=== PATIENT | female | born 1950 | race Caucasian/White ===

== ENCOUNTER → 2017-08-06 09:13 | Outpatient (CLI) | payer MEDICARE, OTHER, SELFPAY | PROVIDERS: Family Provider Family Medicine; PCP Family Medicine; Visit Provider Nurse Practitioner Acute Care | DX: G47.33 Obstructive sleep apnea (adult) (pediatric) (principal) | CPT/HCPCS: 98960; G0463 ==

== ENCOUNTER → 2017-08-20 23:12 | Outpatient (CLI) | payer MEDICARE, OTHER, SELFPAY | PROVIDERS: Family Provider Family Medicine; PCP Family Medicine; Visit Provider Nurse Practitioner Acute Care | DX: G47.33 Obstructive sleep apnea (adult) (pediatric) (principal) | CPT/HCPCS: 95811 ==

== ENCOUNTER → 2018-03-29 08:44 | Outpatient (CLI) | payer MEDICARE, OTHER, SELFPAY ==
--- NOTE | 2018-03-29 08:52 | ECHOD_ITS ---
Reason For Study: Bicuspid AV Procedure This was a 2D Doppler, Color Flow transthoracic echocardiogram. Exam performed in department. Left Ventricle Normal size and thickness. The estimated ejection fraction is 45 %. Stage 1 diastolic dysfunction. There are regional wall motion abnormalities as specified. Mid-Anterior : Mildly hypokinetic. Mid- Posterior: Mildly hypokinetic. Anterior [place] : Akinetic. Inferior [place] : Akinetic. Lateral [place] : Severely Hypokinetic. Right Ventricle Normal size and thickness. Normal systolic function. Atria The left atrium is mildly enlarged. Normal right atrium. Normal atrial septum. Mitral Valve The mitral valve is structurally normal. No prolapse or stenosis seen. Trivial mitral valve insufficiency. Tricuspid Valve Normal tricuspid valve. Trivial tricuspid valve insufficiency. Right ventricular systolic pressure estimated to be 30 mmHg. Aortic Valve Trisinus/trileaflet aortic valve. Mild diffuse aortic valve thickening. Mild (1+) aortic valve insufficiency. Pulmonic Valve Normal pulmonic valve. Great Vessels Normal aortic root. Normal arch. Normal inferior vena cava. Inferior vena cava collapse with sniff. Pericardium/Pleural No pericardial effusion. MMode/2D Measurements & Calculations LVIDd: 4.9 cm IVSd: 1.3 cm LVOT diam: 2.2 cm LVIDs: 3.5 cm LVPWd: 1.2 cm LVOT area: 3.9 cm2 RVDd: 3.5 cm FS: 29.5 % Ao root diam: 3.5 cm LAV(MOD-bp): 74.8 ml LVAd ap4: 34.7 cm2 LA dimension: 4.4 cm LAV(MOD-bp) Indexed: 34.6 ml/m2 EDV(MOD-sp4): 119.2 ml LAV(MOD-sp2): 83.6 ml EDV(sp4-el): 125.1 ml LAV(MOD-sp4): 65.1 ml LVAs ap4: 22.8 cm2 ESV(MOD-sp4): 56.2 ml ESV(sp4-el): 59.9 ml EF(MOD-sp4): 52.9 % EF(sp4-el): 52.1 % SV(MOD-sp4): 63.0 ml SV(sp4-el): 65.1 ml Aortic Valve Planimetry: 1.7 cm2 LA A4 area: 21.4 cm2 RA A4 area: 15.4 cm2 Time Measurements MV dec time: 0.32 sec Doppler Measurements & Calculations MV E max ran: 60.9 cm/sec Lat Peak E' Ran: 7.6 cm/sec Med Peak E' Ran: 7.6 cm/sec MV A max ran: 83.7 cm/sec E/E' lat: 8.0 E/E' med: 8.1 MV E/A: 0.73 MV V2 max: 107.9 cm/sec MV P1/2t max ran: 77.0 cm/sec Ao V2 max: 190.5 cm/sec MV max P.7 mmHg MV P1/2t: 104.8 msec Ao max P.5 mmHg MV V2 mean: 51.4 cm/sec MV dec slope: 215.4 cm/sec2 Ao V2 mean: 119.4 cm/sec MV mean P.2 mmHg MVA(P1/2t): 2.1 cm2 Ao mean P.9 mmHg MV V2 VTI: 30.0 cm Ao V2 VTI: 39.4 cm MVA(VTI): 2.7 cm2 TRAVIS(I,D): 2.1 cm2 TRAVIS(V,D): 1.5 cm2 AI max ran: 477.3 cm/sec LV V1 max: 73.8 cm/sec SV(LVOT): 81.0 ml AI max P.1 mmHg LV V1 max P.2 mmHg AI dec slope: 243.6 cm/sec2 LV V1 mean P.2 mmHg AI P1/2t: 574.0 msec LV V1 mean: 50.2 cm/sec LV V1 VTI: 20.9 cm TR max ran: 270.1 cm/sec TR max P.2 mmHg Interpretation Summary The estimated ejection fraction is 45 %. Stage 1 diastolic dysfunction. There are regional wall motion abnormalities as specified. The left atrium is mildly enlarged. Trivial mitral valve insufficiency. Right ventricular systolic pressure estimated to be 30 mmHg. Mild (1+) aortic valve insufficiency. Compared to echo report dated 04/09/2017, no appreciable changes noted. Ordering Physician: Trevor Lockhart Referring Physician: Sunshine Akins Performed By: Aram Martini RCS
[2018-03-29 09:57] LABS: AST(SGOT) 20 U/L (15-37); Alanine Aminotransfer ALT/SGPT 37 U/L (13-56); Alkaline Phosphatase 81 U/L (45-117); Bilirubin, Direct 0.14 mg/dL (0.00-0.30); Cholesterol 134 mg/dL (200); Globulin 3.5 g/dL (2.2-4.2); High Density Lipoprotein 36 mg/dL; Protein, Total 7.5 g/dL (6.4-8.2); Triglycerides 220 mg/dL; Very Low Density Lipoprotein 44 mg/dL (5-40)
== END ==
PROVIDERS: Family Provider Family Medicine; PCP Family Medicine; Visit Provider Internal Medicine Cardiovascular Disease
DX: I25.42 Coronary artery dissection (principal); Q23.1 Congenital insufficiency of aortic valve; E78.5 Hyperlipidemia, unspecified; Z98.61 Coronary angioplasty status
CPT/HCPCS: 36415; 80061; 80076; 93306

== ENCOUNTER → 2018-04-15 08:50 | Outpatient (CLI) | payer MEDICARE, OTHER, SELFPAY ==
--- NOTE | 2018-04-15 08:55 | US_ITS ---
STUDY: ABDOMINAL ULTRASOUND - RIGHT UPPER QUADRANT REASON FOR VISIT: Female, 67 years old. Abdominal pain TECHNIQUE: Ultrasound evaluation of the right upper quadrant was performed with real-time and static terrell-scale imaging. TECHNICAL QUALITY: Adequate. COMPARISON: None. FINDINGS: Liver: The liver measures 17.7 cm. There is mild diffuse homogeneous hyperechogenicity the liver parenchyma. The bile ducts are within normal limits. There is hepatic color flow. The direction of portal flow is hepatopetal. There is no demonstrated mass lesion. Gallbladder: Normal distended gallbladder. The gallbladder wall measures 2.2 mm. There is a negative sonographic Zarate's sign. There is no pericholecystic fluid. There are no gallstones. Common Bile Duct (C.B.D.): The common bile duct measures 3.5 mm. Pancreas: Normal size of the head, body and tail of the pancreas. There is normal echogenicity of the pancreas. There is no demonstrated pancreatic mass or cyst. Right Kidney: Normal size of the right kidney. The right kidney measures 11.9 x 4.9 x 3.9 cm. Normal renal cortex. The right cortex measures 1.0 cm. Multiple anechoic lesions throughout the right parapelvic region measuring up to 2.7 cm. There is no right hydronephrosis. US/Gallbladder IMPRESSION: 1. Simple appearing right parapelvic cyst measuring up to 2.7 cm. 2. Fatty infiltration of the liver. Electronically Signed: Sergio Bean MD at 2:09 EDT Tel , Service support ,
== END ==
PROVIDERS: Family Provider Family Medicine; PCP Family Medicine; Referring Provider Internal Medicine Cardiovascular Disease; Visit Provider Internal Medicine Cardiovascular Disease
DX: R10.13 Epigastric pain (principal)
CPT/HCPCS: 76705

== ENCOUNTER → 2018-04-21 12:34 | Outpatient (CLI) | payer MEDICARE, OTHER, SELFPAY ==
--- NOTE | 2018-04-21 12:36 | STE_ITS ---
Reason For Study: CAD Stress Results Protocol: Dobutamine Stress Echo Maximum Predicted HR: 154 bpm Target HR: 131 bpm% Maximum Pre dicted HR: 84 % DurationHeart Rate Stage (mm:ss) (bpm) BPCom ment Baseline 69 145/70 No Chest Pain DSE 10 MCG 3:08 69 140/62No Chest Pain DSE 20 MCG 3:00 10 7 141/64No Chest Pain DSE 30 MCG 3:18 13 0 166/77No Chest Pain Recovery 80 142/70 No Chest Pain Stress Duration: 9:26 mm:ss Maximum Stress HR: 130 bpmM ETS: 1 Baseline Echocardiogram Findings The estimated ejection fraction is 50 %. Stress Echo Wall motion Data Resting WMIntermediate WMStress WM Resting Wall Motion Wall Motion Stress Basal anteroseptal: Mildly No regional wall motion hypokinetic. abnormalities noted. Mid-Anterior : Mildly hypokinetic. Mid-anteroseptal : Mildly hypokinetic. EKG Data The baseline ECG displays normal sinus rhythm. The patient was titrated from 10 mcg to a maximun of 30 mcg of dobutamine during the stress. The maximum heart rate attained was 131 beats per minute. This was 85% of maximum predicted heart rate. During dobutamine infusion, there were no ST or T wave changes noted to suggest ischemia. No clinical angina was noted. Interpretation Summary The estimated ejection fraction is 50 %. The patient was titrated from 10 mcg to a maximun of 30 mcg of dobutamine during the stress. Normal, adequate, dobutamine echocardiogram. Negative for ischemia by EKG and echocardiographic criteria. No anginal symptoms noted. Rare PVCs noted. Appropriate blood pressure response to dobutamine. Final LVEF of 65%. Test terminated due to the attainment of target heart rate. Ordering Physician: Trevor Lockhart Referring Physician: Trevor Lockhart Performed By: Ana Frazier RDCS
== END ==
PROVIDERS: Family Provider Family Medicine; PCP Family Medicine; Referring Provider Internal Medicine Cardiovascular Disease; Visit Provider Internal Medicine Cardiovascular Disease
DX: I25.118 Atherosclerotic heart disease of native coronary artery with other forms of angina pectoris (principal); I25.2 Old myocardial infarction; Z98.61 Coronary angioplasty status
CPT/HCPCS: 93017; 93350; J7030; A4216

== ENCOUNTER → 2018-08-31 12:02 | Outpatient (CLI) | payer MEDICARE, OTHER, SELFPAY ==
[2018-08-30 10:22] VITALS: BMI 35.2
[2018-08-30 11:19] VITALS: BMI 34.9
[2018-08-31 13:22] LABS: Cholesterol 127 mg/dL (200); High Density Lipoprotein 35 mg/dL; Triglycerides 194 mg/dL; Very Low Density Lipoprotein 39 mg/dL (5-40)
== END ==
PROVIDERS: Internal Medicine Cardiovascular Disease; Family Provider Family Medicine; PCP Family Medicine; Referring Provider Nurse Practitioner Acute Care; Visit Provider Nurse Practitioner Acute Care
DX: E78.5 Hyperlipidemia, unspecified (principal)
CPT/HCPCS: 36415; 80061; 98960; G0463

== ENCOUNTER 2018-09-24 20:28 | Emergency (ER) | payer MEDICARE, OTHER, SELFPAY ==
[2018-08-30 11:19] VITALS: BMI 34.9
[2018-09-24 20:29] VITALS: BP 133/82; PULSE 95; RESP 16; TEMP 37.3; O2SAT 96; BMI 35.5
--- NOTE | 2018-09-24 20:42 | EKG12_ITS ---
Test Reason : PALPITATIONS Blood Pressure : / mmHG Vent. Rate : 083 BPM Atrial Rate : 083 BPM P-R Int : 178 ms QRS Dur : 088 ms QT Int : 356 ms P-R-T Axes : 036 027 004 degrees QTc Int : 418 ms Normal sinus rhythm Cannot rule out Anterior infarct , age undetermined Abnormal ECG Confirmed by LA HYMAN [id number]), health editor NADIRA MILLIGAN ([id number] on 09/27/2018 4:35:22 PM Referred By: NICHOLE Confirmed By:LA HYMAN
[2018-09-24 20:48] VITALS: BP 157/96; PULSE 98; RESP 27; O2SAT 98
--- NOTE | 2018-09-24 22:24 | ED.VIS.GEN ---
History of Present Illness Chief Complaint: Palpitations Informant: Patient, Significant Other Onset: Today Context: Sudden Onset Timing: Continuous Quality: Heart rate 95?105 Location: Home Current Severity: No palpitations Maximum Severity: Mild Worsened by: Nothing Relieved by: Nothing Associated Symptoms: Nothing Narrative: Patient with history of paroxysmal supraventricular tachycardia who was seen 1 week ago for paroxysmal supraventricular tachycardia. She resolved on her own. She denies chest pain, shortness of breath, orthostatic symptoms, abdominal pain or back pain. She states her heart rate is normally in the 60s. She denies leg pain, swelling or discoloration. She is on no new medication. She has not increased her consumption of caffeinated beverages. She is on no [id number] antihistamines or respiratory medication. 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 (12) Type 2 diabetes mellitus without complications Status: Chronic Past Medical History - Allergies and Home Meds Allergies/Adverse Reactions: Allergies Sulfa (Sulfonamide Antibiotics) Allergy (Intermediate, Verified 09/24/18 20:32) rash Primary Care Physician: Sunshine Akins PA-C [Primary Care Provider] - Prior records reviewed: Yes Surgical History: - Lives: Spouse/ Significant Other Smoking Status: Never smoker Alcohol: Rare Drugs: None Review of Systems General: Denies: Chills, Fever, Sweats Eyes: Denies: Visual changes - bilaterally, Blurred Vision - bilaterally, Diplopia ENT: Denies: Bilateral ear pain, Rhinorrhea, Sore throat Cardiovascular: Reports: Palpitations. Denies: Chest pain Respiratory: Denies: Dyspnea, Cough, Dyspnea on exertion, Orthopnea, Paroxysmal nocturnal dyspnea Gastrointestinal: Denies: Abdominal pain, Nausea, Vomiting, Diarrhea, Melena, Hematochezia Genitourinary: Denies: Dysuria, Hematuria, Frequency Musculoskeletal: Denies: Back pain, Extremity Pain Skin: Denies: Rash, Wounds Neurological: Denies: Headache, Weakness, Numbness Hematologic: Denies: Easy bruising, Easy bleeding Physical Exam Vital Signs/Narrative: Vital Signs Temp Pulse Resp BP Pulse Ox 09/24/18 20:48 98 27 H 157/96 H 98 09/24/18 20:29 99.1 F 95 16 133/82 H 96 Inital Vital Signs reviewed: Yes General: Well nourished, Well developed, No Acute Distress Head: Normocephalic, Atraumatic Eyes: Perrl, EOMI. Negative for: Pale conjunctiva, Scleral icterus ENT: Moist mucous membranes, No rhinorrhea Neck: Supple, Nontender, No lymphadenopathy, No JVD Cardiovascular: Regular rate, Regular rhythm, No murmurs, Normal S1, Normal S2 Respiratory: No distress, CTA bilaterally, Chest nontender. Negative for: Decreased Air Movement Abdomen: Soft, Nontender, Nondistended, Normal bowel sounds, No masses Extremities: Nontender, No edema, - - There is no asymmetry, swelling, discoloration, leg vein distention, palpable cords or tenderness along the distribution of the deep venous system. Skin: Normal color, No rash Neurological: Alert, Oriented x3, Cranial nerves II-XII grossly intact, Normal Strength, Normal Sensation Psychological: - - Patient denies anxiety; however, in my opinion she appears anxious Diagnostic/Tx/Re-eval - Rhythm Strip Rhythm Strip: Sinus Rhythm Rate: 97 Ectopy: None - EKG Initial EKG Interpretation: Sinus Rhythm - Ventricular rate 83. Decreased anterior force. [place] interval, Q denominational, QT interval and axis are normal. When patient was reassessed at 20-25 monitor revealed a sinus rhythm rate of 73. - Medical Decision Making Patient is concerned she may develop paroxysms of tachycardia. Will obtain EKG to determine her rhythm and placed on monitor to assess for any ectopy or dysrhythmia. No laboratory blood work was obtained. Patient was observed until 2224. No ectopy was noted. Heart rate has improved. ED Disposition - Plan for ED Patient: Disposition: Home or Assisted Living Diagnosis: Heart palpitations, Anxiety Instructions: ED Palpitations Referrals: Sunshine Akins PA-C [Primary Care Provider] - As Needed
--- NOTE | 2018-09-24 22:28 | ED.DCSUM_ITS ---
History of Present Illness Chief Complaint: Palpitations Informant: Patient, Significant Other Onset: Today Context: Sudden Onset Timing: Continuous Quality: Heart rate 95?105 Location: Home Current Severity: No palpitations Maximum Severity: Mild Worsened by: Nothing Relieved by: Nothing Associated Symptoms: Nothing Narrative: Patient with history of paroxysmal supraventricular tachycardia who was seen 1 week ago for paroxysmal supraventricular tachycardia. She resolved on her own. She denies chest pain, shortness of breath, orthostatic symptoms, abdominal pain or back pain. She states her heart rate is normally in the 60s. She denies leg pain, swelling or discoloration. She is on no new medication. She has not increased her consumption of caffeinated beverages. She is on no [id number] antihistamines or respiratory medication. 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 (12) Type 2 diabetes mellitus without complications Status: Chronic Past Medical History - Allergies and Home Meds Allergies/Adverse Reactions: Allergies Sulfa (Sulfonamide Antibiotics) Allergy (Intermediate, Verified 09/24/18 20:32) rash Primary Care Physician: Sunshine Akins PA-C [Primary Care Provider] - Prior records reviewed: Yes Surgical History: - Lives: Spouse/ Significant Other Smoking Status: Never smoker Alcohol: Rare Drugs: None Review of Systems General: Denies: Chills, Fever, Sweats Eyes: Denies: Visual changes - bilaterally, Blurred Vision - bilaterally, Diplopia ENT: Denies: Bilateral ear pain, Rhinorrhea, Sore throat Cardiovascular: Reports: Palpitations. Denies: Chest pain Respiratory: Denies: Dyspnea, Cough, Dyspnea on exertion, Orthopnea, Paroxysmal nocturnal dyspnea Gastrointestinal: Denies: Abdominal pain, Nausea, Vomiting, Diarrhea, Melena, Hematochezia Genitourinary: Denies: Dysuria, Hematuria, Frequency Musculoskeletal: Denies: Back pain, Extremity Pain Skin: Denies: Rash, Wounds Neurological: Denies: Headache, Weakness, Numbness Hematologic: Denies: Easy bruising, Easy bleeding Physical Exam Vital Signs/Narrative: Vital Signs Temp Pulse Resp BP Pulse Ox 09/24/18 20:48 98 27 H 157/96 H 98 09/24/18 20:29 99.1 F 95 16 133/82 H 96 Inital Vital Signs reviewed: Yes General: Well nourished, Well developed, No Acute Distress Head: Normocephalic, Atraumatic Eyes: Perrl, EOMI. Negative for: Pale conjunctiva, Scleral icterus ENT: Moist mucous membranes, No rhinorrhea Neck: Supple, Nontender, No lymphadenopathy, No JVD Cardiovascular: Regular rate, Regular rhythm, No murmurs, Normal S1, Normal S2 Respiratory: No distress, CTA bilaterally, Chest nontender. Negative for: Decreased Air Movement Abdomen: Soft, Nontender, Nondistended, Normal bowel sounds, No masses Extremities: Nontender, No edema, - - There is no asymmetry, swelling, discoloration, leg vein distention, palpable cords or tenderness along the distribution of the deep venous system. Skin: Normal color, No rash Neurological: Alert, Oriented x3, Cranial nerves II-XII grossly intact, Normal Strength, Normal Sensation Psychological: - - Patient denies anxiety; however, in my opinion she appears anxious Diagnostic/Tx/Re-eval - Rhythm Strip Rhythm Strip: Sinus Rhythm Rate: 97 Ectopy: None - EKG Initial EKG Interpretation: Sinus Rhythm - Ventricular rate 83. Decreased anterior force. [place] interval, Q sabianism, QT interval and axis are normal. When patient was reassessed at 20-25 monitor revealed a sinus rhythm rate of 73. - Medical Decision Making Patient is concerned she may develop paroxysms of tachycardia. Will obtain EKG to determine her rhythm and placed on monitor to assess for any ectopy or dysrhythmia. No laboratory blood work was obtained. Patient was observed until 2224. No ectopy was noted. Heart rate has improved. ED Disposition - Plan for ED Patient: Disposition: Home or Assisted Living Diagnosis: Heart palpitations, Anxiety Instructions: ED Palpitations Referrals: Sunshine Akins PA-C [Primary Care Provider] - As Needed
[2018-09-24 22:42] VITALS: BP 123/63; PULSE 96; RESP 16; O2SAT 96
== END 2018-09-24 22:42 | disposition home or self-care (01) ==
PROVIDERS: Emergency Provider Emergency Medicine; Family Provider Family Medicine; PCP Family Medicine
DX: R00.2 Palpitations (principal); F41.9 Anxiety disorder, unspecified; I47.1 Supraventricular tachycardia; I25.118 Atherosclerotic heart disease of native coronary artery with other forms of angina pectoris; I25.5 Ischemic cardiomyopathy; Q23.1 Congenital insufficiency of aortic valve; E11.9 Type 2 diabetes mellitus without complications; I10 Essential (primary) hypertension; E78.5 Hyperlipidemia, unspecified; Q21.1 Atrial septal defect; G47.33 Obstructive sleep apnea (adult) (pediatric); K21.9 Gastro-esophageal reflux disease without esophagitis; E66.9 Obesity, unspecified; Z79.02 Long term (current) use of antithrombotics/antiplatelets; Z79.82 Long term (current) use of aspirin; Z79.899 Other long term (current) drug therapy; I25.2 Old myocardial infarction
CPT/HCPCS: 93005; 99283; J7030